=== PATIENT | male | born 1955 | race Caucasian/White ===

== ENCOUNTER 2016-08-31 11:47 | Emergency (ER) | payer BC ==
[~2016-08-31] VITALS: Ht 172.7 cm; Wt 77.1 kg
--- NOTE | 2016-08-31 12:04 | EKG ---
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
[2016-08-31] MEDS ORDERED: ASPIRIN 81 MG TAB.CHEW PO ONE (12:15)
[2016-08-31 12:31] LABS: BASO # 0.1 x10^3/uL (0.0-0.2); BASO % 1 % (0-3); EOS % 1 % (0-3); HEMATOCRIT 43.1 % (39.0-53.0); HEMOGLOBIN 14.8 g/dL (13.0-17.5); LYMPH # 1.7 x10^3/uL (1.0-4.8); LYMPH % 23 % (24-48); MEAN CORPUSCULAR HEMOGLOBIN 30 pg (25-35); MEAN CORPUSCULAR HGB CONC 34 g/dL (31-37); MEAN CORPUSCULAR VOLUME 89 fL (79-100); MONO % 12 % (0-9); NEUT % 63 % (31-73); PLATELET COUNT 258 x10^3/uL (140-400); RED BLOOD COUNT 4.85 x10^6/uL (4.30-5.70); RED CELL DISTRIBUTION WIDTH 12.8 % (11.5-14.5); WHITE BLOOD COUNT 7.1 x10^3/uL (4.0-11.0)
--- NOTE | 2016-08-31 12:31 | RAD ---
Indication: Chest pain. Time of exam 12:24 PM There is mild right convexity thoracic scoliotic curvature. The lungs are clear. No infiltrates are detected. The pulmonary vascularity is normal. No effusion is seen. There is no pneumothorax. Impression: No acute cardiopulmonary process is detected.
[2016-08-31 12:47] LABS: CALCIUM 9.4 mg/dL (8.5-10.1); CREATININE 1.3 mg/dL (0.7-1.3); GFR 56.3
[2016-08-31 15:01] VITALS: BP 128/78
[2016-08-31] MEDS ORDERED: ASPI81TA2 PO (15:15)
--- NOTE | 2016-08-31 15:16 | PHYS DOC ---
Past Medical History Past Medical History: Asthma, Hypertension, Other Additional Past Medical Histor: SCOLIOSIS Past Surgical History: No Surgical History Alcohol Use: Occasionally Drug Use: None Adult General Chief Complaint Chief Complaint: epigastric abdominal pain HPI HPI 61-year-old male presenting the emergency department today with epigastric abdominal pain that lasted for 2 or 3 minutes. His pain was a gripping sensation. It was nonradiating. He describes it as feeling like a "sharp". It then resolves spontaneously. He denies vomiting diaphoresis. Currently he has no pain. Family history of heart disease present, hypertension, and hyperlipidemia. Denies diabetes. Mild treated hypertension present. Review of Systems Review of Systems ROS negative for fevers chills vomiting. Denies any new rashes. All other review of systems is negative unless otherwise noted in history of present illness. Current Medications Current Medications Current Medications Medications (Trade) Dose Ordered Sig/Andreina Start Time Stop Time Status Last Admin Dose Admin Aspirin (Children'S Aspirin) 324 mg 1X ONCE 08/31/16 12:15 08/31/16 12:16 DC 08/31/16 12:30 324 MG Allergies Allergies Allergies Coded Allergies Type Severity Reaction Last Updated Verified No Known Drug Allergies 08/31/16 No Physical Exam Physical Exam Constitutional: Well developed, well nourished, no acute distress, non-toxic appearance. HENT: Normocephalic, atraumatic, bilateral external ears normal, oropharynx moist, no oral exudates, nose normal. [] Eyes: PERRLA, EOMI, conjunctiva normal, no discharge. Neck: Normal range of motion, no tenderness, supple, no stridor. [] Cardiovascular:Heart rate regular rhythm, no murmur Lungs & Thorax: Bilateral breath sounds clear to auscultation [] Abdomen: Abdomen is soft and nontender. neg Grimm sign. Negative McBurney's point. No guarding present. Skin: Warm, dry, no erythema, no rash. Back: No tenderness, no CVA tenderness. [] Extremities: No tenderness, no cyanosis, no clubbing, ROM intact, no edema. Neurologic: Alert and oriented X 3, normal motor function, normal sensory function, no focal deficits noted. [] Psychologic: Affect normal, judgement normal, mood normal. Current Patient Data Vital Signs Vital Signs Date Time Temp Pulse Resp B/P Pulse Ox O2 Delivery O2 Flow Rate FiO2 08/31/16 15:01 64 15 128/78 99 Room Air 08/31/16 11:57 97.7 97.7 Lab Values Laboratory Tests Test 08/31/16 12:19 08/31/16 14:30 White Blood Count 7.1x10^3/uL (4.0-11.0) Red Blood Count 4.85x10^6/uL (4.30-5.70) Hemoglobin 14.8g/dL (13.0-17.5) Hematocrit 43.1% (39.0-53.0) Mean Corpuscular Volume 89fL (79-100) Mean Corpuscular Hemoglobin 30pg (25-35) Mean Corpuscular Hemoglobin Concent 34g/dL (31-37) Red Cell Distribution Width 12.8% (11.5-14.5) Platelet Count 258x10^3/uL (140-400) Neutrophils (%) (Auto) 63% (31-73) Lymphocytes (%) (Auto) 23% (24-48) L Monocytes (%) (Auto) 12% (0-9) H Eosinophils (%) (Auto) 1% (0-3) Basophils (%) (Auto) 1% (0-3) Neutrophils # (Auto) 4.4x10^3uL (1.8-7.7) Lymphocytes # (Auto) 1.7x10^3/uL (1.0-4.8) Monocytes # (Auto) 0.9x10^3/uL (0.0-1.1) Eosinophils # (Auto) 0.1x10^3/uL (0.0-0.7) Basophils # (Auto) 0.1x10^3/uL (0.0-0.2) Sodium Level 142mmol/L (136-145) Potassium Level 4.0mmol/L (3.5-5.1) Chloride Level 104mmol/L (98-107) Carbon Dioxide Level 32mmol/L (21-32) Anion Gap 6 (6-14) Blood Urea Nitrogen 16mg/dL (8-26) Creatinine 1.3mg/dL (0.7-1.3) Estimated GFR (Cockcroft-Gault) 56.3 Glucose Level 105mg/dL (70-99) H Calcium Level 9.4mg/dL (8.5-10.1) Troponin I Quantitative < 0.017ng/mL (0.000-0.055) < 0.017ng/mL (0.000-0.055) XM-Qjs-N-Type Natriuretic Peptide 23pg/mL (0-124) Laboratory Tests 08/31/16 12:19 Laboratory Tests 08/31/16 12:19 EKG EKG [] EKG shows sinus rhythm with a regular rate. Leftward axis present. Intervals are normal. ST segments congruent. Radiology/Procedures Radiology/Procedures [] Chest x-ray unremarkable. Course & Med Decision Making Course & Med Decision Making Pertinent Labs and Imaging studies reviewed. (See chart for details) [] 61-year-old male presenting to the emergency department today with epigastric abdominal pain. Vital signs showed hypertension otherwise unremarkable. Physical exam unremarkable. EEG unremarkable. Troponin negative 2. Chest pain-free. Otherwise blood work unremarkable. I discussed the case with Dr. 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 Dragon Disclaimer Dragon Disclaimer This electronic medical record was generated, in whole or in part, using a voice recognition dictation system. Departure Departure Impression: Primary Impression: Epigastric abdominal pain Disposition: HOME, SELF-CARE Condition: STABLE Referrals: CJ BUSBY MD (PCP) YOCASTA HICKS MD Patient Instructions: Chest Pain (Nonspecific)-Brief Additional Instructions: Thank you for allowing us to participate in your care today. Followup with dr. Hicks in 48 to 72 hours. If you do not have a primary care provider you can ask for a list of our primary care providers. Return to the emergency department you have any new or concerning findings. This should be evaluated by the primary care physician and any necessary consulting services for continued management within a few days after discharge. Return to emergency room if you have any new or concerning symptoms including but not limited to fever, chills, nausea, vomiting, intractable pain, any new rashes, chest pain, shortness of air, uncontrolled bleeding, difficulty breathing, and/or vision loss. You may have been prescribed medication that can change in your level of thinking and ability to operate machinery. These medications include hydrocodone and Ativan. Also, Benadryl has been known to do this as well. Be sure to check with your pharmacist and ask if the medications you've prescribed can affect your level of consciousness. I recommend not operating heavy machinery or driving while on medication such as these. Scripts Aspirin 81 Mg Tab.chew1 Tab PO DAILY #14 TAB Ref 3 Prov:AUGUSTINA CHEN MD 08/31/16 AUGUSTINA CHEN MD Aug 31, 2016 15:16
== END 2016-08-31 15:28 | disposition home or self-care (01) ==
LOC: ER 11:47
DX: R10.13 Epigastric pain (principal); J45.909 Unspecified asthma, uncomplicated; I10 Essential (primary) hypertension; M41.9 Scoliosis, unspecified
CPT/HCPCS: 36415; 71010; 80048; 83880; 84484; 85027; 93005; 99285-25

== ENCOUNTER → 2016-09-05 | Outpatient (CLI) | payer BC ==
[2016-08-31 15:01] VITALS: BP 128/78
[~2016-09-05] MED LIST: ASPI81TA2 PO
--- NOTE | 2016-09-05 19:39 | RAD ---
APPROVED REPORT Test Type: Exercise Stress Nurse/Tech: NIRMALA Kearney RN Test Indications: Chest pain Cardiac History: HTN, see EHR Medications: see EHR Medical History: see EHR Resting ECG: SR Resting Heart Rate: 69 bpm Resting Blood Pressure: 110/70mmHg Pretest Chest Pain: No chest pain Nurse/Tech Notes Lungs CTA, heart tones WNL Consent: The procedure was explained to the patient in lay terms. Informed consent was witnessed. Wes eout was entered into [employer] [employer]. History and Stress Test performed by RT Hung (R) (N) Stress Symptoms No chest pain or symptoms. POST EXERCISE Reason for Termination: Reached target heart rate Target HR: Yes Max HR: 144 bpm 105% of Maximum Predicted HR: 136 bpm Exercise duration: 6:15 min:sec, 3 Stage Exercise capacity: 10METs Max Blood Pressure: 158/82mmHg Blood Pressure response to exercise: Normal blood pressure response during stress. Chest Pain: No. Arrhythmia: No. ST Change: No. INTERPRETATION Stress EKG Conclusion: No acute changes were noted. Imaging Protocol IMAGE PROTOCOL: Rest Tc-99m/stress Tc-99m 1 day Rest: Stress: Viability: Radiopharm.Tc99m [id number] Sestamibi Dose10.5mCi 37.7mCi Duration 15min. 10min. Img Date 09/05/2016 09/05/2016 Inj-Img [id number]. 60min. Rest Admin Site:IV - Left AntecubitalAdministrator:RT Hung (R)(N) Stress Admin Site: IV - Left AntecubitalAdministrator: JORGE Crabtree STRESS DATA End Diast. Vol.80.0mlAv. Heart Rate85.0bpm End Syst. Vol.16.0mlCO Index BSA0.0L/min Myocardial Hxnq848.0gEject. Ksjsqxst30.0% Stress Rates Pk. Fill Rate4.68EDV/secLVtime Pk. Fill 196.70msec Pk. Empty Rate5.17ESV/secLVtime Pk. Helcv598.64msec 08/08 Pk. Fill1.33EDV/sec Stress Scores Regional WT0.00Summed WT1.00 Regional WM0.00Summed WM1.00 LV Perf. Quant 17 Seg. SSS0.00 17 Seg. SRS0.00 17 Seg. SDS0.00 Stress Defect Extent (% LAD)0.00Rest Defect Extent (% LAD)0.00Rev. Defect Extent (% LAD)0.00 Stress Defect Extent (% LCX) 0.00Rest Defect Extent (% LCX)0.00Rev. Defect Extent (% LCX)0.00 Stress Defect Extent (% RCA)0.00Rest Defect Extent (% RCA)0.00Rev. Defect Extent (% RCA)0.00 Stress Defect Extent (% HAVEN)0.00Rest Defect Extent (% HAVEN)0.00Rev. Defect Extent (% HAVEN)0.00 Conclusion 1. Excercised patient on the Daniel Protocol for a total of 6 mins. and 15 sec. 2. Attaind target heart rate with no chest pain, EKG changes or arrythmias 3. No perfusion defects to suggest myocardial ischemia or scar 4. Normal wall motion and wall thickening with an ejection fraction of 80% 5. Scan indicates low risk for future cardiac events
== END | disposition home or self-care (01) ==
LOC: NM 09:06
PROVIDERS: ATTEND Internal Medicine Cardiovascular Disease
DX: I10 Essential (primary) hypertension (principal); R53.83 Other fatigue
CPT/HCPCS: 78452; 93017; 96374; 96376; A9500

== ENCOUNTER → 2016-09-18 | Outpatient (CLI) | payer BC ==
[~2016-09-18] VITALS: Ht 172.7 cm; Wt 77.1 kg
[2016-09-18] VITALS (10 sets, daily range): BP systolic 97–130; BP diastolic 65–85
[~2016-09-18] MED LIST changes: +CONTRAST GIVEN MC PRN; +FENTANYL PF 100 MCG/2 ML VIAL. IV ONE; +FENTANYL PF 100 MCG/2 ML VIAL. ONE; +GABA-585 PO; +IODIXANOL 320 MG/ML 100 ML VIAL. IART ONE; +IODIXANOL 320 MG/ML 100 ML VIAL. ONE; +IV 1/2 NORMAL SALINE 1,000 ML IV SCH; +LIDOCAINE 2% 20 ML VIAL. IJ ONE; +LIDOCAINE 2% 20 ML VIAL. ONE; +LISI10TA2 PO; +LORA1TAB47 PO; +MELO-150 PO; +MIDAZOLAM HCL 2 MG/2 ML VIAL. IV ONE; +MIDAZOLAM HCL 2 MG/2 ML VIAL. ONE; +MOME17SP NS; +PROAIR HFA8.5 GM INH
[2016-09-18 08:22] LABS: HEMATOCRIT 45.6 % (39.0-53.0); RED BLOOD COUNT 4.98 x10^6/uL (4.30-5.70)
[2016-09-18 08:26] LABS: CALCIUM 9.4 mg/dL (8.5-10.1); CREATININE 1.4 mg/dL (0.7-1.3); GFR 51.7; POTASSIUM 4.2 mmol/L (3.5-5.1)
[2016-09-18 08:39] LABS: PROTHROMBIN TIME PATIENT 12.2 SEC (11.7-14.0)
--- NOTE | 2016-09-18 09:46 | PDOC ---
MODERATE SEDATION ASSESSMENT RISKS/ALTERNATIVES Risks/Alternatives Risks and alternatives of this type of sedation and procedure discussed with: RISK/ALTERNATIVES: Patient H & P ON CHART H & P H & P on chart and reviewed for co-morbid conditions and appropriate labs. H&P ON CHART: Yes STATUS PREG STATUS ASSESSED: Yes MEDS/ALLERGIES REVIEWED Meds/Allergies Reviewed Medications and Allergies including time and route of recently administered narcotics and sedatives. MEDS/ALLERGIES REVIEWED: Yes ASA RATING ASA RATING: II AIRWAY ASSESSMENT Airway Assessment Airway patency, oral function limitations, presence of caps, crowns, dentures, partials, and ability to extend neck assessed. AIRWAY ASSESSMENT: Yes MALLAMPATI SCORE MALLAMPATI SCORE: II PRE-SEDATION ASSESSMENT PRE-SEDATION ASSESSMENT: Yes YOCASTA AGUILAR MD Sep 18, 2016 09:46
--- NOTE | 2016-09-18 18:42 | CARD ---
APPROVED REPORT Procedure(s) performed: Left Heart Catheterization with Ventriculogram HISTORY The patient is a 61 year-old male with a history of : diabetes mellitus with treatment, hypertension, family history of premature CAD. INDICATION The indication(s) include : positive stress test, atypical chest pain , chest pain. CASE TECHNIQUE The patient was brought electively into the cardiac catheterization lab. A timeout was performed conf irming the patient's name, date of , procedure, and site of procedure. All necessary parties wer e wearing the appropriate personal protective equipment and radiation monitoring devices. After expla ining the risks and benefits of the procedure, informed consent was obtained.(See nursing notes for m edications administered). The right groin was sterilely prepped and draped. The right femoral groin w as infiltrated with 2% Lidocaine subcutaneous anesthesia. During this case, Fluoroscopy and low osmol ar contrast were used for imaging. A sheath was inserted into the right femoral artery without diffic ulty. Coronary angiography was performed using coronary diagnostic catheters. The left coronary syste m was accessed and visualized with a Diagnostic catheter. The right coronary system was accessed and visualized with a Diagnostic catheter. The left ventricle was accessed and visualized with a Diagnost ic catheter. Left ventricular/Aortic Valve gradient assessed on pullback. Left ventriculogram was per formed in DURON projection. Pre-demployment femoral angiogram was performed . Closure device was deploy ed with a Angioseal without any complications. The patient tolerated the procedure well and there wer e no complications associated with the procedure. Coronary Angiography The patient's coronary anatomy is right dominant. The left main coronary artery is a large size vessel free of disease. The left main bifurcates to the left anterior descending and circumflex. The left anterior descending artery is a medium size vessel free of disease. The first diagonal branc h is a small size vessel free of disease. The second diagonal branch is a small size vessel free of d isease. The third diagonal branch is a small size vessel free of disease. The circumflex artery is a medium size vessel free of disease. The first obtuse marginal branch is a small size vessel free of disease. The second obtuse marginal branch is a small size vessel free of d isease. The third obtuse marginal branch is a small size vessel free of disease. The right coronary artery is a large size vessel free of disease. The right posterior descending jeovany ry is a small size vessel free of disease. The right posterolateral branch is a small size vessel sadie e of disease. Left Ventriculography The left ventricle is normal in size with normal contractility. The left ventricular ejection fractio n is estimated to be 70%%. The left ventricular end diastolic pressure is 14 mmHg. There was no gradi ent across the aortic valve upon pullback. Conclusion This pt has no significant CAD and a normal LV EF of 70% I would recommend medical Tx and noncardiac work up for the chest pains.
== END | disposition home or self-care (01) ==
LOC: CCL 07:58
PROVIDERS: ATTEND Internal Medicine Cardiovascular Disease
DX: R07.89 Other chest pain (principal); E11.9 Type 2 diabetes mellitus without complications; I10 Essential (primary) hypertension
CPT/HCPCS: 36415; 80048; 85027; 85610; 85730; 93458; C1769; C1771; C1892; J2250; J3010